=== PATIENT | female | born 1985 | race Caucasian/White ===

== ENCOUNTER 2016-10-30 22:42 | Emergency (ER) | payer SELFPAY ==
[2016-10-31 01:13] VITALS: BP 174/86
== END 2016-10-31 01:13 | disposition home or self-care (01) ==
LOC: ED 22:42
DX: R06.00 Dyspnea, unspecified (principal); Z88.0 Allergy status to penicillin; Z88.6 Allergy status to analgesic agent
CPT/HCPCS: J1200; J2930; J3490; J7613